=== PATIENT | female | born 1960 | race Caucasian/White ===

== ENCOUNTER 2019-07-11 01:11 | Outpatient (CLI) | payer MEDICAID, SELFPAY ==
--- NOTE | 2019-07-11 15:10 | DI.CT_ITS ---
SYMPTOM/DIAGNOSIS: PULMONARY NODULE R91.[address]: Comparison is made with 14 May 2018. Thee has been mild interval increase in size of the previously noted right lower lobe nodule, now increasing to 7 x 7 mm compared with 6 mm. There is now also right lower lobe atelectasis and/or infiltrate. The left lung appears clear. No pleural effusions are seen. There is now a trace pericardial effusion. IMPRESSION: 1. Mild increase in right lower lobe nodule to 7 mm. 2. New area of atelectasis and infiltrate in the right lower lobe. A 3- month follow up chest CT is recommended.
--- NOTE | 2019-07-11 15:46 | DI.MAMMO_ITS ---
SYMPTOM/DIAGNOSIS: SCREENING Z12.31 BILATERAL SCREENING MAMMOGRAM: Mammograms were interpreted according to the usual protocol including computer analysis with CAD system, tomosynthesis and C view imaging. Comparison is made with exams from 2011 and 2013. The breasts are composed of fatty density tissue, breast density category A. No suspicious masses or suspicious microcalcifications are seen. There has been no significant change. IMPRESSION: Category 1, negative mammogram. Yearly screening mammography is recommended. Breast density category A. SA ASSESSMENT OF FINDINGS: Negative. Category 1. Patient will receive a letter notifying them of these results. BI-RAD category A. The breasts are almost entirely fatty.
== END 2019-07-11 01:31 ==
PROVIDERS: PCP Specialist/Technologist Athletic Trainer; Visit Provider Specialist/Technologist Athletic Trainer
DX: Z12.31 Encounter for screening mammogram for malignant neoplasm of breast (principal); R91.1 Solitary pulmonary nodule; J98.4 Other disorders of lung
CPT/HCPCS: 71250; 77063; 77067

== ENCOUNTER 2019-10-11 00:29 | Outpatient (CLI) | payer MEDICAID, SELFPAY ==
--- NOTE | 2019-10-11 13:15 | DI.CT_ITS ---
EXAM: CT CHEST WO CLINICAL HISTORY: PULMONARY NODULE, R91.1, INCREASE IN SIZE OF RLL NODULE, 3 MO F/U CT TECHNIQUE: Noncontrast COMPARISON: CHEST - LUNG CANCER SCREENING from 09/28/2017 CT CHEST WO from 07/11/2019 FINDINGS: There has been no significant change in size of the previously noted nodule in the peripheral right l ower lobe. An additional tiny adjacent nodule is also unchanged over time. No new nodules are seen. T here are no infiltrates, pleural or pericardial effusions. There is no adenopathy. The heart size is normal. The visualized portions of the upper abdomen are unremarkable. No suspicious bony lesions are seen. IMPRESSION: Stable smoothly marginated nodule in the right lower lobe. The patient is at increased risk of lung c ancer, and annual low-dose screening CT could be performed.
== END 2019-10-11 00:49 ==
PROVIDERS: PCP Specialist/Technologist Athletic Trainer; Visit Provider Specialist/Technologist Athletic Trainer
DX: R91.1 Solitary pulmonary nodule (principal)
CPT/HCPCS: 71250

== ENCOUNTER 2020-04-03 08:26 | Outpatient (CLI) | payer MEDICAID, SELFPAY ==
[2020-04-04 15:24] LABS: COVID-19 RT-PCR Result NEGATIVE (Negative)
== END 2020-04-03 08:46 ==
PROVIDERS: PCP Specialist/Technologist Athletic Trainer; Visit Provider Nurse Practitioner Family
DX: Z11.59 Encounter for screening for other viral diseases (principal)
CPT/HCPCS: U0003

== ENCOUNTER 2020-07-10 15:49 | Outpatient (REF) | payer MEDICAID, SELFPAY ==
--- NOTE | 2020-07-10 14:45 | PAPFT_PTH ---
PATIENT: Piper Schaeffer LOC: [facility] U#:[id number] AGE/SX: 60/F ROOM: RE07/10/[address]: Cheryl Welch DO : 1960 BED: DIS: 07/10/2020 SPEC #: [id number] RECD: 07/10/20 16:23 STATUS: JORDANA REQ #: [id number] SHARAN: 07/10/20 14:[address]: Cheryl Welch DEPT: [facility] Cytology RECD BY: Ayanna Huang ENTERED: 07/10/20 16:23 SP TYPE: PAPFT OTHR DR: Jason Sands Tissues: 1 - CX/ENDOCX FOR PAP SMEARS Procedures: PAP THIN PREP/[facility] Screening Comments: [id number] (UNSATISFACTORY FOR EVALUATION)
== END 2020-07-10 16:09 ==
LOC: LBN 15:49
PROVIDERS: PCP Specialist/Technologist Athletic Trainer; Visit Provider Obstetrics & Gynecology
DX: N89.8 Other specified noninflammatory disorders of vagina (principal); R87.615 Unsatisfactory cytologic smear of cervix; Z12.4 Encounter for screening for malignant neoplasm of cervix
CPT/HCPCS: 88142; 87480; 87510; 87660

== ENCOUNTER 2020-12-05 02:08 | Outpatient (CLI) | payer MEDICAID, SELFPAY ==
--- NOTE | 2020-12-05 11:05 | DI.CT_ITS ---
EXAM: CT CHEST WO CLINICAL HISTORY: F/U PULMONARY NODULE, R91.1. TECHNIQUE: Imaging protocol: Axial computed tomography images were obtained and coronal and sagittal reformatted images were created and reviewed. COMPARISON: CT CT CHEST WO from 10/11/[address] CHEST W CONTRAST from 12/02/2019 FINDINGS: Tracheobronchial tree: Patent where visualized. Pulmonary parenchyma: No focal consolidation. There has been no change in size of the 2 right lower lobe pulmonary nodules. The largest measures 0.6 cm. (Series 4, image 408). The smaller measures 0 .4 cm. (Series 4, image 353). No new pulmonary nodules are present. No architectural distortion. Mediastinum and Sandhya: No dominant adenopathy or fluid collection. Pleura: No effusion or pneumothorax. Heart: The heart is not dilated. No coronary artery calcifications are seen. No pericardial effusion. Aorta: Thoracic aorta non-dilated. Mild atherosclerosis. Upper abdomen: Unremarkable. Lymph nodes: Within normal limits. Soft tissues: Unremarkable. Bones:Within normal limits for the patient's age. IMPRESSION: Stable pulmonary nodules. No new pulmonary nodules. If patient is high risk, CT scan of the chest i n 12 months is recommended. RADIATION DOSE DELIVERED: 375.33mGy.cm Total DLP 375.33mGy.cm Total DLP DATA REPOSITORY: All CT scans at this facility are submitted to the National Radiology Data Registry (NRDR) Dose Index Registry (DIR) with the [employer] ([employer]). RADIATION OPTIMIZATION: All CT scans at this facility use at least one of these dose optimization te chniques: automated exposure control; mA and/or kV adjustment per patient size (includes targeted exa ms where dose is matched to clinical indication); or iterative reconstruction.
== END 2020-12-05 02:28 ==
PROVIDERS: PCP Family Medicine; Visit Provider Family Medicine
DX: R91.8 Other nonspecific abnormal finding of lung field (principal)
CPT/HCPCS: 71250

== ENCOUNTER 2021-10-18 10:57 | Outpatient (CLI) | payer MEDICAID, SELFPAY ==
--- NOTE | 2021-10-18 10:42 | DI.RAD_ITS ---
Exam(s) XR KNEE LT 3V AP,LAT,EVERTON EXAM: XR KNEE LT 3V AP,LAT,EVERTON CLINICAL HISTORY: left knee pain. TECHNIQUE: 2D digital imaging was performed of the left knee. Three images were obtained. AP, late ral and PA tunnel views were obtained. COMPARISON: No previous for comparison. FINDINGS: BONES: No acute fracture is present. No bony destructive lesion is seen. There is periarticular spur ring of the lateral femoral tibial joint. JOINTS: There is mild narrowing of the femoral tibial joint. No joint effusion is seen. SOFT TISSUE: Normal. IMPRESSION: Mild degenerative changes of the left knee. DATA REPOSITORY: RADIATION DOSE DELIVERED:
== END 2021-10-18 10:58 | disposition home or self-care (01) ==
LOC: DIORS 10:57
PROVIDERS: PCP Family Medicine; Visit Provider Physician Assistant
DX: M25.562 Pain in left knee (principal)
CPT/HCPCS: 73562

== ENCOUNTER 2023-06-10 02:33 | Outpatient (CLI) | payer OTHER, MEDICAID, SELFPAY ==
--- NOTE | 2023-06-10 15:15 | DI.CT_ITS ---
Exam(s) CT CHEST WO EXAM: CT CHEST WO CLINICAL HISTORY: PULMONARY NODULE, R91.1. TECHNIQUE: Imaging protocol: Axial computed tomography images were obtained and coronal and sagittal reformatted images were created and reviewed. COMPARISON: CT CT CHEST WO from 12/05/2020 FINDINGS: Tracheobronchial tree: Patent where visualized. Pulmonary parenchyma: No consolidation or dominant measurable mass. There is a stable 6 mm nodule in the lateral aspect of the right lower lobe. There is also stable 4 mm nodule in the posterior right lower lobe. There are no new pulmonary nodules. Mediastinum and Sandhya: No dominant adenopathy or fluid collection. The esophagus is unremarkable. Thyroid gland: Unremarkable. Pleura: No effusion or pneumothorax. Heart: The heart is not dilated. No coronary artery calcifications are seen. No pericardial effusion. Aorta: Thoracic aorta non-dilated. Mild atherosclerosis. Upper abdomen: Unremarkable. Lymph nodes: Within normal limits. Soft tissues: Unremarkable. Bones:Within normal limits for the patient's age. IMPRESSION: 1. Stable pulmonary nodules. 2. No acute pulmonary process. RADIATION DOSE DELIVERED: 385.58mGy.cm Total DLP 385.58mGy.cm Total DLP DATA REPOSITORY: All CT scans at this facility are submitted to the National Radiology Data Registry (NRDR) Dose Index Registry (DIR) with the [employer] (ACR). RADIATION OPTIMIZATION: All CT scans at this facility use at least one of these dose optimization te chniques: automated exposure control; mA and/or kV adjustment per patient size (includes targeted exa ms where dose is matched to clinical indication); or iterative reconstruction.
== END 2023-06-10 02:53 ==
PROVIDERS: PCP Family Medicine; Visit Provider Family Medicine
DX: R91.8 Other nonspecific abnormal finding of lung field (principal)
CPT/HCPCS: 71250

== ENCOUNTER → 2024-01-06 01:12 | Outpatient (CLI) | payer OTHER, SELFPAY ==
--- NOTE | 2024-01-06 | DI.MRI_ITS ---
Exam(s) MR UPPER EXTREMITY LT WO/W EXAM: MR UPPER EXTREMITY LT WO/W CLINICAL HISTORY: MASS SOFT TISSUE LT UPPER LIMB,R22.32 TECHNIQUE: Multiplanar multisequence MRI was performed both pre and post contrast infused sequences. . CONTRAST: IV Dotarem 11 mL COMPARISON: No exams were available for comparison FINDINGS: The field of view implied was to the length of the humerus down to the supracondylar level. Region o f clinical interest according to the patient is on the posterior aspect of the upper arm where she fe els a lump. MARROW:No evidence of intraosseous signal abnormality in the diaphysis of the humerus. There are no significant osseous lesions. MUSCLES: There is no evidence of abnormal signal nor mass in the visualized muscles. EXTRAMUSCULAR SOFT TISSUES: No abnormal signal, mass, or fluid collection. In the area of clinical concern there is prominent but otherwise normal appearing subcutaneous fat ti ssue. No discrete lipoma nor evidence of liposarcoma. OTHER: on the peripheral aspect of the field of view there is a glenohumeral joint effusion and fluid in the subacromial bursa. also degenerative cysts in the lateral aspect of the humeral head. also fluid in the biceps tendon sheath. suspect significant rotator cuff pathology low cannot be assessed accurately on humerus study. IMPRESSION: 1. No evidence of significant mass in the area of clinical concern on the posterior aspect of the upp er arm. With the patient claims to have a lump there is just prominent subcutaneous fat tissue which exhibits normal signal. There is no abnormal signal in the deltoid and subjacent triceps nor other musculature in the upper arm. 2. Incidentally noted in the peripheral aspect of field of view is evidence of significant glenohumer al joint effusion as well as fluid in the overlying subacromial bursa. There is also upward subluxat ion of the humeral head in the osseous glenoid. Suspect significant rotator cuff pathology which can not be studied accurately on this type of study but would require dedicated shoulder MRI. DATA REPOSITORY:
[2024-01-06] MEDS: Gadoterate meglumine 20 ML VIAL 11 ML IVP (09:54)
[2024-01-06] MEDS: Normal Saline Flush 10 ML SYR IJ (09:55)
[2024-01-06 10:15] LABS: CREATININE 0.9 mg/dL (0.55-1.02); Estimated GFR 70.95 (mL/min/1.73m2)
== END ==
PROVIDERS: PCP Family Medicine; Visit Provider Family Medicine
DX: R22.32 Localized swelling, mass and lump, left upper limb (principal)
CPT/HCPCS: 73220; 82565

== ENCOUNTER 2024-01-13 15:12 | Outpatient (CLI) | payer OTHER, SELFPAY ==
--- NOTE | 2024-01-13 14:45 | DI.RAD_ITS ---
Exam(s) XR SHOULDER LT COMPLETE 2+V EXAM: XR SHOULDER LT COMPLETE 2+V CLINICAL HISTORY: LEFT SHOULDER PAIN. TECHNIQUE: 2D digital imaging was performed. Three views. COMPARISON: MR MR UPPER EXTREMITY LT WO/W from 01/06/2024 FINDINGS: BONES: No acute fracture is present. No bony destructive lesion is seen. JOINTS: No dislocation present. Glenohumeral joint space is maintained. No significant degenerative changes. Spurring noted at the AC joint. Degenerative subchondral cyst and mild spurring at the gr eater tuberosity. Some spurring also present at lesser tuberosity. SOFT TISSUE: Normal. IMPRESSION: Degenerative changes of the AC joint. DATA REPOSITORY: RADIATION DOSE DELIVERED:
== END 2024-01-13 15:13 | disposition home or self-care (01) ==
LOC: DIORS 15:13
PROVIDERS: PCP Family Medicine; Referring Provider Family Medicine; Visit Provider Student in an Organized Health Care Education/Training Program
DX: M75.102 Unspecified rotator cuff tear or rupture of left shoulder, not specified as traumatic
CPT/HCPCS: 99213; 73030

== ENCOUNTER → 2024-01-28 01:57 | Outpatient (CLI) | payer OTHER, SELFPAY ==
--- NOTE | 2024-01-28 13:09 | DI.MRI_ITS ---
Exam(s) MR UPPER JOINT LT WO EXAM: MR UPPER JOINT LT WO CLINICAL HISTORY: L SHOULDER PAIN,LT ROTATOR CUFF TEAR,M75.102 TECHNIQUE: Multiplanar multisequence MRI of the shoulder was performed. COMPARISON: CR XR SHOULDER LT COMPLETE 2+V from 01/13/2024 FINDINGS: MARROW:There is no evidence of fracture, Hill-Sachs deformity, bony Bankart lesion, nor ominous osseo us lesions. GLENOHUMERAL JOINT: There is a small joint effusion. There is approximately 1 cm upward subluxation of the humeral head in the osseous glenoid. There is fluid in the subacromial/subdeltoid bursa . sma ll osteophyte on the inferior articular surface of the humeral head. Mild articular cartilage loss. There are no degenerative subarticular cysts in the osseous glenoid. There are few tiny cysts in th e lateral humeral head. No evidence of obvious capsular tear. The inferior glenohumeral ligament is intact. ROTATOR CUFF MECHANISM: AC JOINT/ACROMIUM: There are mild degenerative changes in the AC joint. No prominent undersurface os teophytes.. There is no evidence of os acromiale. Supraspinatus: There is significant signal abnormality in the supraspinatus tendon consistent with ro tator cuff tendinitis. Subtle findings at the greater tuberosity level are difficult to determine de generative cysts from prior fastener devices from possible prior surgery. There appears to be some a rticular side surface partial tearing. Can not identify a true full-thickness tear of the supraspina tus despite the presence of fluid in the subacromial bursa. There is no atrophy of the muscle belly. Infraspinatus: Also some articular side signal abnormality at the insertional aspect but no full-thic kness tear. Teres Minor: Intact. No evidence of tear nor muscle atrophy. Subscapularis/anterior cuff: There is significant signal abnormality within the multipennate insertio nal fibers anterior to the lesser tuberosity consistent with tendinitis. Subtle suggestion of partia l tearing. BICEPS TENDON: The biceps tendon is not displaced from the intertubercular groove but exhibits some a bnormal intrasubstance signal within its intra articular course. LABRUM: There is some attenuation of the superior labrum posterior aspect. There does not appear to be a tear of the posterior labrum. Mild irregularity of the superior aspect of the anterior labrum i s noted. The anteroinferior labrum is intact and there is no abnormal periosteal stripping at this l evel. The inferior labrum appears intact. No abnormal intraosseous signal in the anterior-inferior osseous glenoid. The inferior glenohumeral ligament appears intact. QUADRILATERAL SPACE: No evidence of mass in the region of the axillary nerve and dorsal circumflex hu meral vessels. Visualized triceps muscle at this level appears unremarkable. IMPRESSION: 1. There is signal abnormality consistent with tendinitis/tendinosis in the rotator cuff supraspinatu s tendon and a lesser amount of signal abnormality in the infraspinatus. There is also significant t endinitis signal in the subscapularis-anterior cuff. There also appears to be element of partial tea ring of the anterior cuff and supraspinatus. There is fluid in the subacromial-subdeltoid bursa whic h may be bursitis as there does not appear to be an obvious full-thickness tear. 2. There is upward subluxation of the humeral head in the osseous glenoid fossa, this usually more of ten seen with full-thickness tears than tendinitis and partial-thickness tear. 3. Subtle findings in the lateral aspect of the humeral head-greater tuberosity region which may refl ect prior surgery. 4. Mild multilevel labral abnormalities. No prominent labral tear. There is signal abnormality wit hin the intra-articular aspect of the biceps tendon but no high-grade tear nor displacement of the bi ceps tendon 5. Small-moderate size glenohumeral joint effusion and mild degenerative changes in the joint. No l oose intra-articular bodies evident. DATA REPOSITORY:
== END ==
PROVIDERS: PCP Family Medicine; Visit Provider Student in an Organized Health Care Education/Training Program
DX: M75.121 Complete rotator cuff tear or rupture of right shoulder, not specified as traumatic (principal)
CPT/HCPCS: 73221

== ENCOUNTER → 2024-02-10 08:52 | Outpatient (BNVA) | payer OTHER, SELFPAY | PROVIDERS: PCP Family Medicine; Referring Provider Family Medicine; Visit Provider Student in an Organized Health Care Education/Training Program | DX: M25.311 Other instability, right shoulder (principal); M75.22 Bicipital tendinitis, left shoulder; M75.102 Unspecified rotator cuff tear or rupture of left shoulder, not specified as traumatic | CPT/HCPCS: 20610; J1030 ==

== ENCOUNTER → 2024-04-27 09:25 | Outpatient (BNVA) | payer OTHER, SELFPAY | PROVIDERS: PCP Family Medicine; Visit Provider Student in an Organized Health Care Education/Training Program | DX: M75.102 Unspecified rotator cuff tear or rupture of left shoulder, not specified as traumatic (principal); M75.22 Bicipital tendinitis, left shoulder; M25.311 Other instability, right shoulder | CPT/HCPCS: 99213 ==